=== PATIENT | female | born 1985 ===

== ENCOUNTER 2017-07-20 11:40 | Emergency (ER) | payer MEDICAID ==
[2017-07-20 11:44] VITALS: BMI 31.6
[2017-07-20] MEDS ORDERED: Sodium Chloride 0.9% 1,000 ML IV STA (12:25)
--- NOTE | 2017-07-20 12:39 | ED PDOC ---
HPI: Abdomen Time Seen by Provider: 07/20/17 11:49 Chief Complaint (Provider): Lower abdominal pain History Per: Patient History/Exam Limitations: no limitations Onset/Duration Of Symptoms: Days (x1 week) Current Symptoms Are (Timing): Still Present Location Of Pain/Discomfort: Other Quality Of Discomfort: "Pain" Associated Symptoms: Urinary Symptoms (dysuria), Other (vaginal bleeding). denies: Vomiting, Diarrhea Additional Complaint(s): Susanne Zheng is a 32 year old female, with no significant past medical history, who presents to the emergency department complaining of lower abdominal pain onset for x1 week and vaginal bleeding onset for x1 day. Patient also reports dysuria but denies any hematuria, vomiting or diarrhea. No further medical complaints. PMD: None provided. Abnormal Vaginal Bleeding: Yes : 3 Para: 1 Miscarriage: 1 Past Medical History Reviewed: Historical Data, Nursing Documentation, Vital Signs Vital Signs: Last Vital Signs Temp 98.1 F 07/20/17 11:44 Pulse 87 07/20/17 11:44 Resp 20 07/20/17 11:44 BP 145/86 07/20/17 11:44 Pulse Ox 99 07/20/17 16:18 - Medical History PMH: Back Problems, Depression - Surgical History Surgical History: - Family History Family History: States: Unknown Family Hx - Immunization History Hx Tetanus Toxoid Vaccination: No Hx Influenza Vaccination: No Hx Pneumococcal Vaccination: No - Home Medications Home Medications: Ambulatory Orders Medication Instructions Recorded Nitrofurantoin Macrocrystals 1 cap PO BID #14 cap 01/26/17 [Macrobid] - Allergies Allergies/Adverse Reactions: Allergies Allergy/AdvReac Type Severity Reaction Status Date / Time No Known Allergies Allergy Verified 01/26/17 17:54 Review of Systems ROS Statement: Except As Marked, All Systems Reviewed And Found Negative Gastrointestinal: Positive for: Abdominal Pain (lower). Negative for: Vomiting , Diarrhea Genitourinary Female: Positive for: Dysuria, Vaginal Bleeding. Negative for: Hematuria Physical Exam - Reviewed Nursing Documentation Reviewed: Yes - Physical Exam Appears: Positive for: Well, Non-toxic, No Acute Distress Head Exam: Positive for: ATRAUMATIC Skin: Positive for: Normal Color, Warm, Dry Eye Exam: Positive for: Normal appearance Neck: Positive for: Painless ROM, Supple Cardiovascular/Chest: Positive for: Regular Rate, Rhythm. Negative for: Murmur Respiratory: Positive for: Normal Breath Sounds. Negative for: Respiratory Distress Gastrointestinal/Abdominal: Positive for: Tenderness (b/l lower quadrant). Negative for: Guarding, Rebound Extremity: Positive for: Normal ROM. Negative for: Tenderness, Deformity, Swelling Neurologic/Psych: Positive for: Alert, Oriented. Negative for: Motor/Sensory Deficits - Laboratory Results Result Diagrams: 07/20/17 12:53 07/20/17 16:15 - ECG O2 Sat by Pulse Oximetry: 99 (RA) Pulse Ox Interpretation: Normal Medical Decision Making Medical Decision Making: Initial Impression: Abdominal pain in and vaginal bleeding Initial Plan: --Type and screen --Beta-HCG, quantitative --CMP --Urine Dipstick --Urine --CBC w/ differential --PTT --PT --Tylenol 325mg tab 650 mg PO --Sodium Chloride 1,000 ml IV 1,000 mls/hr --OB Preg 1st Tri & OB Transvag [US] --Reevaluation 15:56 Transvaginal US FINDINGS: UTERUS: Measures 8.12 x 6.4 x 5.6 cm. Uterus is retroverted without focal myometrial lesion identified. ENDOMETRIUM: Measures 12.2 mm in diameter. Endometrium appears grossly nonfocal. There is no fluid collection or apparent gestational sac within the endometrial cavity. CERVIX: A few nabothian cysts are identified with the cervix otherwise unremarkable. RIGHT OVARY: Measures 3.3 x 1.7 x 1.5 cm. There is a tiny slightly hyperechoic focus identified at the is anterior right ovary measuring 0.5 x 0.5 x 0.4 cm this may represent a small hemorrhagic cyst though other etiologies are possible. A few punctate hyperechoic foci are nonspecific at the left ovary. Normal flow. LEFT OVARY: Measures 2.4 x 3.0 x 3.5 cm. No solid mass. Normal flow. A few small follicles are identified. FREE FLUID: No significant free fluid noted. OTHER FINDINGS: None. IMPRESSION: Intrauterine gestation is not identified, however, an ectopic gestation is also not appreciable on transvaginal pelvic ultrasonography. Given LMP indicating an approximate 4 week 4 day estimated gestational age, a viable gestation is not excluded but neither is an ectopic gestation. Clinically correlate further with ultrasound recommended in 1 week unless clinically indicated sooner. Nonspecific 5 mm hyperechoic focus right ovary potentially reflecting a hemorrhagic cyst though other etiologies are possible. Follow-up ultrasound is recommended for this finding as well. Copy of labs and ultrasound given to patient to take to [facility]. Scribe Attestation: Documented by Bossman Guerra, acting as a scribe for Cecile Ramos MD Provider Scribe Attestation: All medical record entries made by the Scribe were at my direction and personally dictated by me. I have reviewed the chart and agree that the record accurately reflects my personal performance of the history, physical exam, medical decision making, and the department course for this patient. I have also personally directed, reviewed, and agree with the discharge instructions and disposition. Disposition - Clinical Impression Clinical Impression: Threatened - Disposition Disposition: Routine/Home Disposition Time: 17:07 Condition: STABLE Additional Instructions: FOLLOW-UP WITH YOUR [facility] IN ONE WEEK FOR REPEAT BETA HCG AND ULTRASOUND. RETURN TO ED IF CANNOT SEE [facility] AT THAT TIME. Instructions: Threatened Miscarriage
[2017-07-20 13:10] LABS: BASO # 0.1 K/uL (0.0-0.2); BASO % 0.8 % (0.0-2.0); EOS # 0.1 K/uL (0.0-0.7); EOS % 0.9 % (0.0-4.0); LYMPH # 3.1 K/uL (1.0-4.3); LYMPH % 29.4 % (20.0-40.0); MEAN CELL VOLUME 84.2 fl (81.0-99.0); MEAN CORPUSCULAR HEMOGLOBIN 27.4 pg (27.0-31.0); MEAN CORPUSCULAR HGB CONC 32.6 g/dL (33.0-37.0); MONO # 0.7 K/uL (0.0-0.8); MONO % 6.5 % (0.0-10.0); NEUT # 6.7 K/uL (1.8-7.0); NEUT % 62.4 % (50.0-75.0); RBC 5.09 Mil/uL (3.80-5.20); RED CELL DISTRIBUTION WIDTH 15.1 % (11.5-14.5); WHITE BLOOD COUNT 10.7 K/uL (4.8-10.8)
[2017-07-20 13:23] LABS: INR 1.1 (0.9-1.2); PARTIAL THROMBOPLASTIN TIME 30.1 Seconds (25.6-37.1); PROTHROMBIN TIME 12.3 Seconds (9.8-13.1)
--- NOTE | 2017-07-20 15:58 | US ---
HISTORY: Lower abd pain, vag bleeding ; last menstrual period 06/18/2017 COMPARISON: None available. TECHNIQUE: Transvaginal pelvic ultrasound was performed with longitudinal and transverse images submitted for interpretation. FINDINGS: UTERUS: Measures 8.12 x 6.4 x 5.6 cm. Uterus is retroverted without focal myometrial lesion identified. ENDOMETRIUM: Measures 12.2 mm in diameter. Endometrium appears grossly nonfocal. There is no fluid collection or apparent gestational sac within the endometrial cavity. CERVIX: A few nabothian cysts are identified with the cervix otherwise unremarkable. RIGHT OVARY: Measures 3.3 x 1.7 x 1.5 cm. There is a tiny slightly hyperechoic focus identified at the is anterior right ovary measuring 0.5 x 0.5 x 0.4 cm this may represent a small hemorrhagic cyst though other etiologies are possible. A few punctate hyperechoic foci are nonspecific at the left ovary. Normal flow. LEFT OVARY: Measures 2.4 x 3.0 x 3.5 cm. No solid mass. Normal flow. A few small follicles are identified. FREE FLUID: No significant free fluid noted. OTHER FINDINGS: None. IMPRESSION: Intrauterine gestation is not identified, however, an ectopic gestation is also not appreciable on transvaginal pelvic ultrasonography. Given LMP indicating an approximate 4 week 4 day estimated gestational age, a viable gestation is not excluded but neither is an ectopic gestation. Clinically correlate further with ultrasound recommended in 1 week unless clinically indicated sooner. Nonspecific 5 mm hyperechoic focus right ovary potentially reflecting a hemorrhagic cyst though other etiologies are possible. Follow-up ultrasound is recommended for this finding as well.
[2017-07-20 16:33] LABS: ALB/GLOB RATIO 1.2 (1.0-2.1); ALBUMIN 3.9 g/dL (3.5-5.0); ALT/SGPT 36 U/L (9-52); AST/SGOT 17 U/L (14-36); BLOOD UREA NITROGEN 7 mg/dl (7-17); CALCIUM 8.9 mg/dL (8.4-10.2); GFR AFRICAN-AMERICAN > 60; GFR NON-AFRICAN AMERICAN > 60
[2017-07-20 17:16] VITALS: O2SAT 99
[2017-07-20 17:23] VITALS: BP 128/86; PULSE 79; RESP 20; TEMP 97
== END 2017-07-20 17:26 | disposition home or self-care (01) ==
LOC: H.ER 11:40
DX: O20.0 Threatened abortion (principal); F32.9 Major depressive disorder, single episode, unspecified
CPT/HCPCS: 76817; 80053; 81025; 84702; 85025; 85610; 85730; 86850; 86900; 99284; J7040

== ENCOUNTER 2017-08-05 17:00 | Emergency (ER) | payer MEDICAID ==
[2017-08-05 17:00] VITALS: BMI 31.6
[2017-08-05 17:04] VITALS: BP 130/87; PULSE 78; RESP 18; TEMP 98.7; O2SAT 99
--- NOTE | 2017-08-05 17:39 | ED PDOC ---
HPI: Female Pain Time Seen by Provider: 08/05/17 17:37 Chief Complaint (Nursing): Female Genitourinary Chief Complaint (Provider): ABD PAIN History Per: Patient (32 Y/O FEMALE M1 APPROX 8 WEEKS GESTATION HERE WITH LOWER ABD PAIN AND VAGINAL BLEEDING TODAY. HAS HAS US THIS WEEK NOTED IUP/ GESTATIONAL SAC BUT UNABLE TO DETERMINE AGE OF GESTATION.) Past Medical History Reviewed: Historical Data, Nursing Documentation, Vital Signs Vital Signs: Last Vital Signs Temp 98.7 F 08/05/17 17:01 Pulse 78 08/05/17 17:01 Resp 18 08/05/17 17:01 BP 130/87 08/05/17 17:01 Pulse Ox 99 08/05/17 17:01 - Medical History PMH: Back Problems, Depression - Surgical History Surgical History: - Family History Family History: States: Unknown Family Hx - Immunization History Hx Tetanus Toxoid Vaccination: No Hx Influenza Vaccination: No Hx Pneumococcal Vaccination: No - Home Medications Home Medications: Ambulatory Orders Medication Instructions Recorded Nitrofurantoin Macrocrystals 1 cap PO BID #14 cap 01/26/17 [Macrobid] - Allergies Allergies/Adverse Reactions: Allergies Allergy/AdvReac Type Severity Reaction Status Date / Time No Known Allergies Allergy Verified 01/26/17 17:54 Review of Systems ROS Statement: Except As Marked, All Systems Reviewed And Found Negative Physical Exam - Reviewed Nursing Documentation Reviewed: Yes Vital Signs Reviewed: Yes - Physical Exam Appears: Positive for: Well, Non-toxic, No Acute Distress Head Exam: Positive for: ATRAUMATIC, NORMAL INSPECTION, NORMOCEPHALIC Skin: Positive for: Normal Color, Warm, DRY Eye Exam: Positive for: EOMI, Normal appearance, PERRL ENT: Positive for: Normal ENT Inspection Neck: Positive for: Normal, Painless ROM Cardiovascular/Chest: Positive for: Regular Rate, Rhythm Respiratory: Positive for: CNT, Normal Breath Sounds Gastrointestinal/Abdominal: Positive for: Normal Exam, Soft Pelvic Exam: Positive for: Discharge (small amt of dark blood noted. no active bleeding). Negative for: Bimanual Exam Normal, No Cerv. Motion Tender Back: Positive for: Normal Inspection Extremity: Positive for: Normal ROM Neurologic/Psych: Positive for: Alert, Oriented - Laboratory Results Result Diagrams: 08/05/17 18:40 08/05/17 18:40 Urine POC: Positive - ECG O2 Sat by Pulse Oximetry: 99 Disposition - Clinical Impression Clinical Impression: Threatened miscarriage - Patient ED Disposition Is Patient to be Admitted: Transfer of Care - Disposition Disposition: Transfer of Care Disposition Time: 19:55 Condition: FAIR Instructions: Threatened Miscarriage Forms: [facility] (Hungarian) Patient Signed Over To: Emil Garcia Handoff Comments: pending us transvaginal
[2017-08-05 18:48] LABS: BASO # 0.1 K/uL (0.0-0.2); BASO % 0.8 % (0.0-2.0); EOS # 0.1 K/uL (0.0-0.7); LYMPH # 2.7 K/uL (1.0-4.3); LYMPH % 27.5 % (20.0-40.0); MEAN CELL VOLUME 83.8 fl (81.0-99.0); MEAN CORPUSCULAR HEMOGLOBIN 27.4 pg (27.0-31.0); MEAN CORPUSCULAR HGB CONC 32.7 g/dL (33.0-37.0); MONO # 0.7 K/uL (0.0-0.8); MONO % 7.3 % (0.0-10.0); NEUT # 6.1 K/uL (1.8-7.0); NEUT % 63.4 % (50.0-75.0); RBC 4.73 Mil/uL (3.80-5.20); RED CELL DISTRIBUTION WIDTH 15.6 % (11.5-14.5); WHITE BLOOD COUNT 9.6 K/uL (4.8-10.8)
[2017-08-05 19:44] LABS: BLOOD UREA NITROGEN 12 mg/dl (7-17); CALCIUM 9.6 mg/dL (8.4-10.2); GFR AFRICAN-AMERICAN > 60; GFR NON-AFRICAN AMERICAN > 60
--- NOTE | 2017-08-05 20:27 | US ---
EXAM: US , Transvaginal CLINICAL HISTORY: 32 years old, female; Pain; complicated by abdominal or pelvic pain; Periumbilical; First trimester; Gestational age or lmp: 06/18/2017; ; Prior surgery; Surgery date: 6+ months; Surgery type: Previous ; Additional info: Abd pain in TECHNIQUE: Real-time transvaginal obstetrical ultrasound of the maternal pelvis and a first trimester with image documentation. Transvaginal imaging was used for better evaluation of the fetus and adnexa. COMPARISON: No relevant prior studies available. FINDINGS: Gestation: Single live intrauterine . Gestational sac, pole and yolk sac noted. Estimated gestational age based on crown-rump length is 5 weeks 6 days. Heart rate measured at 110 bpm. Uterus/cervix: No acute abnormality as visualized. No myometrial mass. Ovaries: No acute abnormality as visualized. Question left corpus luteum. Doppler flow. Free fluid: No free fluid. IMPRESSION: Single live intrauterine as above.
--- NOTE | 2017-08-05 20:34 | ED PDOC ---
- Laboratory Results Result Diagrams: 08/05/17 18:40 08/05/17 18:40 Urine POC: Positive - ECG O2 Sat by Pulse Oximetry: 99 - Progress ED Course And Treament: 0000 Signed out to me pending US report 0020 On re-evaluation, pt. in no distress. Pt. states pain has been present x 1 week. Pt was seen by Dr. Burch (pt.'s OBGYN) on for pelvic pain but had no vaginal bleeding at that time. Pt. states on she had blood work and her BHCG was ~74512. States vaginal bleeding is minimal and is only present when she wipes after she urinates. Offers no complaints at this time. 0835 Single live intrauterine as above. Informed of results and instructed to f/u with Dr. Burch. Agrees with plan. Advised to return to ED if symptoms worsen. Disposition - Clinical Impression Clinical Impression: Threatened miscarriage - POA Present On Arrival: None - Disposition Referrals: [facility] [Outside] Disposition: Routine/Home Disposition Time: 20:38 Condition: STABLE Additional Instructions: Follow up with Dr. Burch, your OBGYN, for further evaluation. Return to ED immediately if symptoms worsen. Instructions: Threatened Miscarriage (DC) Forms: [employer] (Luxembourgish) Print Language: KENYAN
== END 2017-08-05 21:00 | disposition home or self-care (01) ==
LOC: H.ER 17:00
DX: O20.0 Threatened abortion (principal); Z3A.08 8 weeks gestation of pregnancy; F32.9 Major depressive disorder, single episode, unspecified

== ENCOUNTER 2017-08-17 10:55 | Emergency (ER) | payer MEDICAID ==
[2017-08-17 11:03] VITALS: BMI 32.0
[2017-08-17] MEDS ORDERED: Sodium Chloride 0.9% 1,000 ML IV STA (12:01)
--- NOTE | 2017-08-17 12:06 | ED PDOC ---
HPI: Headache Chief Complaint (Provider): i have a headache for 2 days History Per: Patient History/Exam Limitations: no limitations Onset/Duration Of Symptoms: Days ( to months) Current Symptoms Are (Timing): Still Present Severity: Severe Quality: Pressure, "Pain" Preceeding Symptoms: None Associated Symptoms: Photophobia. denies: Blurred Vision, Nausea, Vomiting, Extremity Weakness Additional History Per: Patient Additional Complaint(s): 32 year old female presents with complaints of headaches for past 2 months, acutely worsened over past 2 days. Headache is severe, with pressure. Pain is diffuse, worst right side, associated photophobia, nasal congestion. without any neck pain, blurry vision, dizziness, nausea, vomiting, numbness or tingling of extremities. She took tyenol 500mg yesterday without improvement. She also notes she ate ceviche 2 days ago, that may have caused her symptoms. She is 8 weeks . She has hx of headaches. She reports constipation with this goes about 3 times a week. She was seen in ED 1 week ago for vaginal bleeding that resolved. Pt saw her [facility] last week. PMD: Dr. Patel, RE[facility] ASSEMBLER: Dr. Christi Burch <Joby Quinteros - Last Filed: 08/17/17 14:03> Additional Complaint(s): Headache frontal, same as her migraine. Took tylenol with no relief. Not worst pain in her life. No neck pain. No numbness, tingles, weakness. No chest pain, abd pain. Had IUP ultrasound 1 week ago. <Yusef Rodriguez - Last Filed: 08/17/17 15:50> Time Seen by Provider: 08/17/17 11:16 Chief Complaint (Nursing): Headache Past Medical History Vital Signs: Last Vital Signs Temp 98.3 F 08/17/17 11:04 Pulse 88 08/17/17 11:04 Resp 20 08/17/17 11:04 BP 128/74 08/17/17 11:04 Pulse Ox 98 08/17/17 11:04 - Medical History PMH: No Chronic Diseases - Surgical History Surgical History: - Family History Family History: States: Unknown Family Hx - Immunization History Hx Tetanus Toxoid Vaccination: No Hx Influenza Vaccination: No Hx Pneumococcal Vaccination: No <Joby Quinteros - Last Filed: 08/17/17 14:03> Vital Signs: Last Vital Signs Temp 98 F 08/17/17 14:15 Pulse 81 08/17/17 14:15 Resp 16 08/17/17 14:15 BP 136/76 08/17/17 14:15 Pulse Ox 99 08/17/17 14:15 <Yusef Rodriguez - Last Filed: 08/17/17 15:50> - Home Medications Home Medications: Ambulatory Orders Medication Instructions Recorded Nitrofurantoin Macrocrystals 1 cap PO BID #14 cap 01/26/17 [Macrobid] - Allergies Allergies/Adverse Reactions: Allergies Allergy/AdvReac Type Severity Reaction Status Date / Time No Known Allergies Allergy Verified 08/17/17 11:16 Review of Systems Constitutional: Positive for: Fever (subjective). Negative for: Chills, Weakness ENT: Positive for: Nose Congestion Cardiovascular: Negative for: Chest Pain, Palpitations, Edema, Light Headedness Respiratory: Negative for: Cough, Shortness of Breath Gastrointestinal: Positive for: Constipation. Negative for: Nausea, Vomiting, Abdominal Pain, Diarrhea, Rectal Pain Genitourinary Female: Positive for: Frequency. Negative for: Dysuria, Incontinence, Hematuria, Pelvic Pain Musculoskeletal: Negative for: Neck Pain Skin: Negative for: Rash Neurological: Positive for: Headache. Negative for: Weakness, Numbness, Confusion, Altered Mental Status <Joby Quinteros - Last Filed: 08/17/17 14:03> Physical Exam - Reviewed Vital Signs Reviewed: Yes - Physical Exam Appears: Positive for: Well, Non-toxic, No Acute Distress Head Exam: Positive for: ATRAUMATIC, NORMAL INSPECTION, NORMOCEPHALIC Skin: Positive for: Normal Color, Warm, DRY Eye Exam: Positive for: EOMI, Normal appearance, PERRL ENT: Positive for: Sinus Pain/Drainage (frontal pain). Negative for: Nasal Congestion, Pharyngeal Erythema, Tonsillar Exudate Neck: Positive for: Normal, Painless ROM Cardiovascular/Chest: Positive for: Regular Rate, Rhythm, Chest Non Tender. Negative for: Murmur, Bradycardia, Tachycardia Respiratory: Positive for: Normal Breath Sounds. Negative for: Decreased Breath Sounds, Rales, Rhonchi, Stridor, Wheezing, Respiratory Distress Gastrointestinal/Abdominal: Positive for: Normal Exam Back: Positive for: Normal Inspection. Negative for: L CVA Tenderness, R CVA Tenderness Extremity: Negative for: Tenderness, Pedal Edema Neurologic/Psych: Positive for: Alert, security screener II-XII, Oriented. Negative for: Motor/Sensory Deficits, Aphasia <Joby Quinteros - Last Filed: 08/17/17 14:03> - Physical Exam Eye Exam: Positive for: Normal appearance, EOMI, PERRL Cardiovascular/Chest: Positive for: Regular Rate, Rhythm Respiratory: Positive for: Normal Breath Sounds Gastrointestinal/Abdominal: Positive for: Soft. Negative for: Tenderness Back: Positive for: Normal Inspection Neurologic/Psych: Positive for: Alert, security screener II-XII, Oriented. Negative for: Motor/Sensory Deficits, Aphasia, Facial Droop <Yusef Rodriguez - Last Filed: 08/17/17 15:50> - Laboratory Results Result Diagrams: 08/17/17 12:01 08/17/17 12:01 Urine POC: Positive - ECG O2 Sat by Pulse Oximetry: 98 - Progress ED Course And Treament: 32 year old female with worsening headache for past 2 days as well as URI, 8 weeks . -reglan -tylenol -cbc -cmp -udip -beta-hcg patient seen and examined with Dr. Rodriguez. TIME 1:30 Patient re-examined, feeling better after tylenol and reglan. Labs were unremarkable and were discussed with the patient. case d/w Dr. Rodriguez <Joby Quinteros - Last Filed: 08/17/17 14:03> - Laboratory Results Result Diagrams: 08/17/17 12:01 08/17/17 12:01 Interpretation Of Abn Labs: no acute <Yusef Rodriguez - Last Filed: 08/17/17 15:50> Medical Decision Making Medical Decision Makin32 year old female seen for headache and URI. Treated with tylenol and reglan with improvement of her symptoms. Her vital signs and lab work were within acceptable limits. She is to follow up with her PCP, Dr. Patel in 1-2 days. Return if not better in 3 days. <Joby Quinteros - Last Filed: 08/17/17 14:03> Medical Decision Makin: Stable. AAOx3. Pain free. Tolerated PO. <Yusef Rodriguez - Last Filed: 08/17/17 15:50> Disposition - Patient ED Disposition Is Patient to be Admitted: No - Disposition Disposition: Routine/Home Disposition Time: 13:56 <Joby Quinteros - Last Filed: 08/17/17 14:03> - Patient ED Disposition Is Patient to be Admitted: No Counseled Patient/Family Regarding: Studies Performed, Diagnosis - Disposition Disposition: Routine/Home <Yusef Rodriguez - Last Filed: 08/17/17 15:50> - Clinical Impression Clinical Impression: Headache, URI (upper respiratory infection) - Disposition Referrals: [facility] [Outside] - 08/21/17 Condition: IMPROVED Additional Instructions: Return if not better in 3 days. Instructions: Headache, Adult, Viral Upper Respiratory Infection, Adult (DC) Forms: [facility] (Greek), [facility] ED School/Work Excuse
[2017-08-17 12:17] LABS: BASO % 0.5 % (0.0-2.0); EOS # 0.1 K/uL (0.0-0.7); EOS % 0.9 % (0.0-4.0); HEMOGLOBIN 12.7 g/dL (12.0-16.0); LYMPH # 1.9 K/uL (1.0-4.3); MEAN CELL VOLUME 83.4 fl (81.0-99.0); MEAN CORPUSCULAR HEMOGLOBIN 28.2 pg (27.0-31.0); MEAN CORPUSCULAR HGB CONC 33.8 g/dL (33.0-37.0); MONO # 0.8 K/uL (0.0-0.8); MONO % 8.8 % (0.0-10.0); NEUT # 6.3 K/uL (1.8-7.0); NEUT % 68.8 % (50.0-75.0); NRBC % 0.1 % (0.0-0.0); RBC 4.5 Mil/uL (3.80-5.20); RED CELL DISTRIBUTION WIDTH 15.7 % (11.5-14.5); WHITE BLOOD COUNT 9.1 K/uL (4.8-10.8)
[2017-08-17 12:26] LABS: ALB/GLOB RATIO 1.2 (1.0-2.1); ALBUMIN 4.1 g/dL (3.5-5.0); ALT/SGPT 35 U/L (9-52); AST/SGOT 21 U/L (14-36); BLOOD UREA NITROGEN 9 mg/dl (7-17); CALCIUM 9.2 mg/dL (8.4-10.2); GFR AFRICAN-AMERICAN > 60; GFR NON-AFRICAN AMERICAN > 60
[2017-08-17 13:39] VITALS: RESP 16
[2017-08-17 15:29] VITALS: BP 136/76; PULSE 81; TEMP 98; O2SAT 99
== END 2017-08-17 14:00 | disposition home or self-care (01) ==
LOC: H.ER 10:55
DX: R51 Headache (principal); J06.9 Acute upper respiratory infection, unspecified
CPT/HCPCS: 80053; 81025; 84702; 85025; 96360; 99283; J7040